=== PATIENT | male | born 2000 ===

== ENCOUNTER 2019-05-15 19:23 | Emergency (ER) | payer SELFPAY ==
[2019-05-15 19:38] VITALS: BP 130/85
[2019-05-15] MEDS ORDERED: Sulfamethox/Trimethoprim DS 800/160* TAB PO ONE (20:09)
--- NOTE | 2019-05-15 20:09 | UC ---
Skin Complaint HPI - HPI Summary HPI Summary: patient has intermittent abscess on buttocks, was last treated 2 mo ago with Bactrim and got better. 2 days ago he experienced painful swollen area between buttocks, draining "liquid", denies fever or chills, has taken no meds or tried no treatment - History of Current Complaint Chief Complaint: UCGeneralIllness Time Seen by Provider: 05/15/19 19:47 Stated Complaint: PERSONAL Hx Obtained From: Patient Onset/Duration: Gradual Onset Skin Exposure Onset/Duration: Days Ago - 2 Timing: Constant Onset Severity: Mild Current Severity: Moderate Pain Intensity: 6 Location: Discrete Character: Swelling, Painful Aggravating Factor(s): Touch, Other - pressure Alleviating Factor(s): Nothing Associated Signs & Symptoms: Positive: Drainage. Negative: Fever, Chills Similar Episode/Dx as: abscess - Allergy/Home Medications Allergies/Adverse Reactions: Allergies Allergy/AdvReac Type Severity Reaction Status Date / Time No Known Allergies Allergy Verified 05/15/19 19:38 Home Medications: Home Medications Ibuprofen TAB* [Advil TAB*] 400 mg PO ONCE PRN 05/15/19 [History Confirmed 05/14] Sulfamethox/Trimethoprim DS* [Bactrim DS 800/160 TAB*] 1 tab PO BID #18 tab 09/26 [Rx] [email or web address] ER TAB [Mucinex*] 600 mg PO BID PRN 05/15/19 [History Confirmed 09/26] PMH/Surg Hx/FS Hx/Imm Hx Previously Healthy: Yes - Surgical History Surgical History: Yes Surgery Procedure, Year, and Place: fx nose (repaired), wisdom teeth - Family History Known Family History: Positive: None - Social History Occupation: Student Lives: Dormitory/Roommates Alcohol Use: None Substance Use Type: None Smoking Status (MU): Never Smoked Tobacco Review of Systems All Other Systems Reviewed And Are Negative: Yes Constitutional: Positive: Negative Skin: Positive: Other - draining abscess Respiratory: Positive: Negative Cardiovascular: Positive: Negative Psychological: Positive: Negative Is Patient Immunocompromised?: No Physical Exam Triage Information Reviewed: Yes Appearance: Well-Appearing, No Pain Distress, Well-Nourished Vital Signs: Initial Vital Signs Temp 98.6 F 05/15/19 19:33 Pulse 88 05/15/19 19:33 Resp 16 05/15/19 19:33 BP 130/85 05/15/19 19:33 Pulse Ox 97 05/15/19 19:33 Vital Signs Reviewed: Yes Respiratory Exam: Normal Respiratory: Positive: Lungs clear Cardiovascular Exam: Normal Cardiovascular: Positive: RRR Abdominal Exam: Normal Abdomen Description: Positive: Nontender, No Organomegaly, Soft Neurological Exam: Normal Psychological Exam: Normal Skin Exam: Other - there is a small draining abscess upper cleft of buttock, and another small draining abscess between buttocks, painful when pressure applied to express drainage Course/Dx - Differential Diagnoses - Skin Complaint Differential Diagnoses: Abscess, Cellulitis, Foreign Body - Diagnoses Provider Diagnosis: Pilonidal cyst with abscess Discharge ED - Sign-Out/Discharge Documenting (check all that apply): Patient Departure All imaging exams completed and their final reports reviewed: No Studies - Discharge Plan Condition: Stable Disposition: HOME Prescriptions: Sulfamethox/Trimethoprim DS* [Bactrim DS 800/160 TAB*] 1 tab PO BID #18 tab Patient Education Materials: Pilonidal Cyst (ED) Referrals: No Primary Care Phys,NOPCP [Primary Care Provider] - [facility] [Outside] - 1 Week (for recheck abscess and discuss possible surgical follow-up for cyst removal) Additional Instructions: keep abscess clean and dry apply hibiclens solution to area once daily as we discussed start Bactriim and take as directed follow-up culture results - Billing Disposition and Condition Condition: STABLE Disposition: Home
--- NOTE | 2019-05-18 22:01 | UC ---
- Progress Note Progress Note: Buttock abscess abstain culture and sensitivity from July 15, 2019 comes back with Streptococcus and Peptostreptococcus. Patient was placed on Bactrim at visit. The Streptococcus sensitivity does not list Bactrim. Nursing to call patient. If the patient is improved continue the Bactrim if the patient is not improved patient will need a different antibiotic prescription a stye on sensitivities. Course/Dx - Diagnoses Provider Diagnoses: Pilonidal cyst with abscess Discharge ED - Sign-Out/Discharge Documenting (check all that apply): Patient Departure All imaging exams completed and their final reports reviewed: No Studies - Discharge Plan Condition: Stable Disposition: HOME Prescriptions: Sulfamethox/Trimethoprim DS* [Bactrim DS 800/160 TAB*] 1 tab PO BID #18 tab Patient Education Materials: Pilonidal Cyst (ED) Referrals: [facility] [Outside] - 1 Week (for recheck abscess and discuss possible surgical follow-up for cyst removal) No Primary Care Phys,NOPCP [Primary Care Provider] - Additional Instructions: keep abscess clean and dry apply hibiclens solution to area once daily as we discussed start Bactriim and take as directed follow-up culture results - Billing Disposition and Condition Condition: STABLE Disposition: Home
== END 2019-05-15 20:33 | disposition home or self-care (01) ==
LOC: UCEAST 19:23
DX: L05.01 Pilonidal cyst with abscess (principal)
CPT/HCPCS: 87070; 87076; 87077; 87186; 87205; 87640; 87641; 99202; A9270-GY; G0463